=== PATIENT | male | born 1960 | race Hispanic/Latino ===

== ENCOUNTER → 2017-06-26 | Outpatient (CLI) | payer OTHER ==
--- NOTE | 2017-06-26 13:44 | DIREP ---
PROCEDURE:US DUPLEX EXTREM VEINS UNILATER/LIMITED-LT COMPARISON:None. INDICATIONS:LT LEG PAIN TECHNIQUE:The left lower extremity was evaluated utilizing elnea scale images with segmental compression, color Doppler, and spectral Doppler with respiratory variation and augmentation. FINDINGS: Common femoral vein:Patent Superficial femoral vein:Patent Popliteal vein:Patent Anterior tibial vein:Patent Posterior tibial vein:Patent Greater saphenous vein:Patent Waveforms are within normal limits. CONCLUSION:Normal examination. There are no findings of deep venous thrombosis in the left lower extremity. Dictated by: Mika Burrows M.D. on 06/26/2017 at 01:43 PM
== END | disposition home or self-care (01) ==
LOC: RAD 12:26
DX: M79.605 Pain in left leg (principal)
CPT/HCPCS: 93971